=== PATIENT | female | born 2005 | race Caucasian/White ===

== ENCOUNTER 2025-01-23 11:48 | Emergency (ER) | payer OTHER, SELFPAY ==
[2025-01-23 11:49] VITALS: BP 148/92; PULSE 122; RESP 16; TEMP 36.7; O2SAT 100; BMI 34.2
--- NOTE | 2025-01-23 11:56 | ED.RN ---
EXPLAINED BWC TO PT. PT DECLINED AND STATES THAT SHE WILL RUN IT THROUGH HER INSURANCE.
--- NOTE | 2025-01-23 11:59 | ED.RN ---
PT ASKED QUESTION LATER IN TRIAGE REGARDING BWC. GIVEN FROI, EXPLAINED AGAIN AND PT HAD EMPLOYER ON PHONE NO DRUG SCREEN REQUIRED. PT AGREEABLE AND WANTS TO STARTED PROCESS AND EE WHAT TRANSPIRES FROM THERE.
--- NOTE | 2025-01-23 12:17 | EDS_ITS ---
HPI <TAHIRA Jimenez - Last Filed: 01/23/25 12:26> History of Present Illness Chief Complaint: Head Injury Narrative Narrative: Patient is a 19-year-old female with no significant medical history who presents to the emergency department after a head injury while at work that occurred 2 days ago. 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 She was bent down, stood up and hit a metal pole. She denies any LOC. She states she did have a bump that day, since then, she has been feeling nauseous, more tired. Patient states that bright lights do bother her, and she is here for evaluation. Denies any actual vomiting, per the mother denies any altered mental status. PFSH <TAHIRA Jimenez - Last Filed: 01/23/25 12:26> PFSH Medical History no medical history Home Medications ?Medication ?Instructions ?Recorded ?Last Taken ?Type cholecalciferol (vitamin D3) 62.5 mcg PO 11/29/22 Unkn own History mcg (2,500 unit) capsule multivitamin 1 tab PO DAILY 04/11/23 Unkn own History sertraline 50 mg tablet (Zoloft) 50 mg PO DAILY #30 ta bs 04/11/23 Unknown Rx ondansetron 4 mg disintegrating 4 mg PO Q8H PRN PRN Na usea #10 tabs 01/23/25 Unknown Rx tablet Allergy/AdvReac Type Severity Reaction Status Date / Time No Known Allergies Allergy Verified 01/23/25 11:49 Family History Other Diabetes Surgical History no surgical history Social History Smoking Status: Never smoker alcohol intake: current alcohol intake frequency: holidays/special occasions only substance use type: does not use what type of physical activity do you participate in: other frequency: 3-4 times per week ROS <TAHIRA Jimenez - Last Filed: 01/23/25 12:26> ROS ED ROS Narrative Constitutional: Negative for fever, chills, weight loss, weakness Eyes: Negative for vision loss, vision change, double vision ENT: Negative for any sore throat, ear pain, congestion Cardiovascular: Negative for any chest pain, tightness, palpitations Respiratory: Negative for any cough, sputum production, hemoptysis, dyspnea, dyspnea on exertion, orthopnea Gastrointestinal: Negative for any abdominal pain, vomiting, diarrhea, constipation, blood in stool, blood in vomit. Positive for nausea : Negative for any urinary frequency, dysuria, retention, blood in urine Muscle skeletal: Negative for any neck pain, back pain Neurological: Negative for any syncope, dizziness. Positive for headache, light sensitivity Skin: Negative for any rashes, itching, abrasions, lacerations Psychiatric: Negative for any depression, anxiety, stress, suicidal ideation, homicidal ideation Hematologic: Negative for any excessive bruising, easy bleeding EXAM <TAHIRA Jimenez - Last Filed: 01/23/25 12:26> Physical Exam Narrative Exam Narrative: Vital signs reviewed. HEET: Head normocephalic atraumatic, TMs clear bilaterally. Posterior pharynx is clear, moist mucous membranes. Nares clear bilaterally. Pupils are equal round reactive to light. Slight photophobia, no nystagmus. I did not feel any hematoma Neck: Supple with no lymphadenopathy or tenderness. No signs of meningismus. Cardiac: Regular rate and rhythm no murmurs gallops or rubs, equal peripheral pulses bilaterally. Respiratory: Lungs clear to auscultation bilaterally. No chest tenderness. Abdomen: Soft, nontender, nondistended. No abdominal bruit or pulsatile masses. No hepatosplenomegaly Extremities: No peripheral edema, no signs of gross trauma or deformity. Active full range of motion of all extremities. Neuro: Cranial nerves II through XII intact, no focal neurological deficits. Neuroexam unremarkable Skin: Clean dry and intact with no rash, purpura, petechiae, vesicles or pustules. Backs/flank: No CVA tenderness, no midline spinal tenderness, no deformity. Psych: Normal mood and affect. No SI, HI or acute psychosis. Const Vital Signs: 01/23/25 11:49 01/23/25 12:31 Temperature 98.0 F Temperature Source Oral Pulse Rate 122 H Respiratory Rate 16 Respiratory Effort Normal Respiratory Depth Normal Respiratory Pattern Normal Blood Pressure 148/92 H Blood Pressure Mean 110 Pulse Ox 100 Oxygen Delivery Method Room Air Room Air Positive well nourished and well developed General Appearance ED: well developed <Dr. Jean Duke DO - Last Filed: 01/23/25 12:42> Physical Exam Const Vital Signs: 01/23/25 11:49 01/23/25 12:31 Temperature 98.0 F Temperature Source Oral Pulse Rate 122 H Respiratory Rate 16 Respiratory Effort Normal Respiratory Depth Normal Respiratory Pattern Normal Blood Pressure 148/92 H Blood Pressure Mean 110 Pulse Ox 100 Oxygen Delivery Method Room Air Room Air [facility] <TAHIRA Jimenez - Last Filed: 01/23/25 12:26> [facility] Treatment and Re-Evaluation :: Differential diagnosis includes however is not limited to: Closed head injury, concussion, skull fracture, intracranial bleeding Patient appears generally well, vital signs are stable, patient is nontoxic- appearing. Presenting to the emergency department for complaints of a head injury that occurred 2 days ago, patient is here with symptoms of concussion. On my physical examination, there is no neurodeficits. Patient according [place] CT head rules does not require any advanced imaging. Patient has no hematoma, no depressed skull fracture. Patient was given Zofran, Tylenol here. Patient will have all paperwork signed, secondary to this being Worker's Comp. Happy with the plan of care, chemistries return precaution, stable for discharge. <Dr. Jean Duke DO - Last Filed: 01/23/25 12:42> [facility] Narrative Medical decision making narrative: Differential diagnosis but not limited to includes concussion hematoma skull fracture intracranial hemorrhage I have personally performed a face to face assessment of the patient and have reviewed the CHANCE Note. I performed a substantive portion of the visit including all aspects of the following. My rose findings include: History is patient struck her head on . Was able to work yesterday. Notes continued headache and nausea and generalized fatigue. She had no loss of consciousness. No fall. She is not on any blood thinners. No reported seizure. Exam is afebrile vital signs are stable. Well-appearing female sitting comfortably in the bed. Neurologically is intact without deficits. Medical Decison Makingbased on the history and the physical do believe this patient has a concussion. Would recommend rest symptomatic care. Follow-up if not improving return if worsening History & Record Review Discussion w/independent historian: Patient and Family Discharge Plan Triage Chief Complaint: Head Injury ED Midlevel Provider: Wilfredo Ozuna ED Provider: Jean Duke Dx/Rx/DC Orders Clinical Impression: Head injury, Concussion syndrome Instructions: Coping with Concussion, After a Concussion Prescriptions: New ondansetron 4 mg tablet,disintegrating 4 mg PO Q8H PRN PRN (Reason: Nausea) Qty: 10 0RF No Action cholecalciferol (vitamin D3) 62.5 mcg (2,500 unit) capsule PO multivitamin Tablet 1 tab PO DAILY sertraline [Zoloft] 50 mg tablet 50 mg PO DAILY Qty: 30 3RF Primary Care Provider: Care Physician,No Primary Referrals: Care Physician,No Primary [Primary Care Provider] - Activity Restrictions/Additional Instructions: Please follow-up outpatient. Print Language: Czech Disposition Disposition: Home, Self Care
[2025-01-23] MEDS: Acetaminophen 500 MG Tablet 1000 MG PO (12:30)
[2025-01-23] MEDS: Ondansetron ODT 4 MG Tablet PO (12:30)
== END 2025-01-23 12:48 | disposition home or self-care (01) ==
LOC: ED 12:44
PROVIDERS: Emergency Provider Emergency Medicine; Visit Provider Emergency Medicine
DX: S09.90XA Unspecified injury of head, initial encounter (principal); F07.81 Postconcussional syndrome; W22.09XA Striking against other stationary object, initial encounter; Y99.0 Civilian activity done for income or pay; Y92.89 Other specified places as the place of occurrence of the external cause
CPT/HCPCS: 99282

== ENCOUNTER 2025-02-16 17:16 | Emergency (ER) | payer OTHER, SELFPAY ==
[2025-02-16 17:17] VITALS: BP 159/96; PULSE 129; RESP 15; TEMP 36.5; O2SAT 100; BMI 34.5
--- NOTE | 2025-02-16 18:28 | CT_ITS ---
PROCEDURE: BRAIN/HEAD WITHOUT CONTRAST 02/16/2025 REASON FOR EXAM: Pain, trauma TECHNIQUE: Head CT without intravenous contrast. Coronal and Sagittal reconstruction series were provided. One or more dose reduction techniques were used (e.g., Automated exposure control, adjustment of the mA and/or kV according to patient size, use of iterative reconstruction technique. COMPARISON: None FINDINGS: No acute intracranial hemorrhage, midline shift or mass effect. No definite CT evidence of acute territorial cortical infarction. No hydrocephalus. Cerebral volume is age-appropriate. Calvarium is intact. Paranasal sinuses and mastoid air cells are clear. CT/Brain/Head without Contrast IMPRESSION: No acute intracranial abnormality. Reading Location: [facility]
--- NOTE | 2025-02-16 18:30 | EX.ED.DYSGE1 ---
HPI History of Present Illness Chief Complaint: Headache Informant: patient and parent Onset/Context/Timing Onset: Weeks Current Severity: Mild Maximum Severity: Moderate Narrative Narrative: 19-year-old female no CeeNU past medical history. Reportedly had a head injury about 4 weeks ago. Currently a relatively minor injury. She was on some type of lip stood up hit her head on a steel beam. No LOC. She is on no blood thinners. Says she has had headaches since that time. She is also states she just has not been feeling well she has been excessively tired. Has had nausea without vomiting had some loose stools that resolved. No dysuria. She has never been . Last menstrual period was about 2 weeks ago. She denies any current vaginal bleeding. No chest pain or abdominal pain. No shortness of breath. Prior similar symptoms: No Recent Illness/Hospitalization: No PFSH PFSH Medical History no medical history no medical history Home Medications ?Medication ?Instructions ?Recorded ?Last Taken ?Type cholecalciferol (vitamin D3) 62.5 mcg PO 11/29/22 Unknown History mcg (2,500 unit) capsule multivitamin 1 tab PO DAILY 04/11/23 Unknown History sertraline 50 mg tablet (Zoloft) 50 mg PO DAILY #30 tabs 04/11/23 Unknown Rx ondansetron 4 mg disintegrating 4 mg PO Q8H PRN PRN Nausea #10 tabs 01/23/25 Unknown Rx tablet Allergy/AdvReac Type Severity Reaction Status Date / Time No Known Allergies Allergy Verified 02/16/25 17:17 Family History Other Diabetes Surgical History no surgical history no surgical history Social History Smoking Status: Never smoker alcohol intake: current alcohol intake frequency: holidays/special occasions only substance use type: does not use what type of physical activity do you participate in: other frequency: 3-4 times per week ROS ROS ED ROS Narrative Headaches post head injury. General illness. Constitutional Constitutional ED: Denies chills or fever(s) Eyes Eyes: Denies blurry vision ENT ENT ED: Denies ear pain Cardiovascular Cardiovascular: Reports palpitations; Denies chest pain Respiratory/Chest Respiratory/Chest: Denies cough, dyspnea or dyspnea on exertion Gastrointestinal Gastrointestinal: Denies abdominal pain Genitourinary Genitourinary ED: Denies dysuria or hematuria Musculoskeletal Musculoskeletal: Denies arthralgias or back pain Integumentary Denies abscess Neurologic Neurologic: Reports headache(s) Psychiatric Psychiatric: Reports anxiety Endocrine Endocrinology: Denies cold intolerance Hematologic/Lymphatic Hematologic/Lymphatic: Reports none Allergic/Immunologic Allergic/Immunologic ED: Denies mouth swelling, tongue swelling or urticaria EXAM Physical Exam Narrative Exam Narrative: Well-appearing 19-year-old female. Vital signs are stable except her pulse is in the 120s. She does not look septic toxic no acute distress. Mom at bedside. H EENT exam pupils round react to light. Motions are intact. Mytrex membranes. Scalp nontender no hematoma. Neck nontender. No lymphadenopathy. No thyromegaly. Lungs clear to auscultation bilaterally. Heart tachycardic no murmur rate about 125. Chest and ribs are nontender. Abdomen soft nontender. No peritoneal signs. Moving all 4 extremities. 5-5 diagnostic assistant strength. Dorsi plantarflexion intact. Calves are nontender without edema or cords. Neurologically she is awake and alert no focal motor deficits. Answering questions following commands. Back nontender. Skin unremarkable no rashes. No cellulitis. She does seem anxious. Const Vital Signs: 02/16/25 17:17 02/16/25 19:36 02/16/25 21:00 Temperature 97.7 F L Temperature Source Temporal Pulse Rate 129 H 110 H 105 H Respiratory Rate 15 14 18 Blood Pressure 159/96 H 118/76 113/77 Blood Pressure Mean 117 90 89 Pulse Ox 100 100 99 Oxygen Delivery Method Room Air Room Air Room Air Positive well nourished and well developed; Negative for cachectic, contractures or unkempt General Appearance ED: well developed and NAD; Negative for unkempt, cachectic, contractures, cyanotic, diaphoretic or pallor Nutritional Appearance: Negative for cachectic HEENT Reports moist mucous membranes Negative for trauma or tenderness Eyes PERRL and EOMs intact bilaterally General Eye ED: Negative for pale conjunctiva or scleral icterus Neck no lymphadenopathy, supple and no JVD Chest Wall inspection of chest normal and palpation of chest normal Resp normal respiratory effort and clear to auscultation bilaterally Cardio regular rhythm, S1 normal heart sound, S2 normal heart sound and no murmurs; Negative for regular rate Rate: tachycardic GI normal to inspection, nondistended, normoactive bowel sounds, non-tender, non-distended and no masses Auscultation: normoactive bowel sounds Palpation: soft; Negative for tender, guarding or rebound tenderness present Back/Spine no CVA tenderness General Back: Negative for CVA tenderness Cervical Spine: Negative for cervical spine tenderness Thoracic Spine / Upper Back: Negative for thoracic spinal tenderness or paraspinal muscle tenderness Lumbar Spine / Lower Back: Negative for lumbar spinal tenderness Extremity normal to inspection General Extremety ED: Negative for edema or tenderness General Extremity: Negative for edema Neuro oriented x3 and CN's II-XII intact bilaterally Sensorium / Orientation: alert; Negative for orientation impaired or stuporous Motor Exam: strength 5/5 throughout Psych mental status grossly normal Appearance: Negative for unkempt Attitude: No agitated Mood & Affect: anxious; Negative for depressed or tearful Skin no rashes or lesions noted, no wounds and skin turgor normal General Skin Exam: elasticity normal; Negative for jaundice or pallor Lesions: No lesion noted Rashes: No rashes noted Trauma: Negative for abrasion Wounds: Negative for wounds noted MDM MDM MDM Narrative Medical decision making narrative: 19-year-old female complaint is not feeling well. With the tachycardia. Recent head injury. Neurologic exam is normal. She has had headaches for 4 weeks. I will obtain a CAT scan of her head due to trauma even though did not sound like a significant injury. Screening labs with thyroid and test. EKG and chest x-ray due to tachycardia. Repeat exam at Repeat exam at 10:22 PM patient doing well. No complaints. Vital signs are stable. She clinically looks well. She is afebrile. Exam remains benign. Her heart rate initially was 129 and is currently around 100. I went over all test results with her and her mom. They are comfortable with her being discharged home. History & Record Review Discussion w/independent historian: Patient and Family Additional record(s) reviewed:: Prior inpatient record, Prior outpatient record, Prior ED visit and Prior labs Lab Data Attestation: I reviewed the patient's lab results. Lab results narrative: CBC normal. White count 7. H&H 14 and 38. Platelets 226. Electrolytes show gap 12. Normal BUN of 8 creatinine 0.6. Glucose 109. Thyroid 1.9 and normal. Serum test negative. Labs: Laboratory Results - last 24 hr 02/16/25 18:12 WBC 7.2 RBC 4.42 Hgb 14.0 Hct 38.6 MCV 87.3 MCH 31.7 MCHC 36.3 H RDW Std Deviation 40.1 RDW Coeff of Dominique 12.7 Plt Count 226 MPV 10.1 Immature Gran % (Auto) 0.300 Neut % (Auto) 61.7 Lymph % (Auto) 30.1 [place] % (Auto) 6.8 Eos % (Auto) 0.8 Baso % (Auto) 0.3 Absolute Neuts (auto) 4.5 Absolute Lymphs (auto) 2.18 Nucleated RBC % 0 Sodium 139 Potassium 3.4 Chloride 103 Carbon Dioxide 23.9 Anion Gap 12 BUN 8 Creatinine 0.61 L Estim Creat Clear Calc 142.52 Est GFR (MDRD) Non-Af 131 BUN/Creatinine Ratio 13.0 Glucose 109 H Calcium 9.6 TSH 1.930 Serum , Qual NEGATIVE Radiography Chest X-Ray - ED: 2 View and Read by ED Physician Diagnostic Testing: Clinical Impression(s) from Imaging Studies Brain CT 02/16/25 18:28 IMPRESSION: No acute intracranial abnormality. Reading Location: [facility] Chest X-Ray 02/16/25 18:39 IMPRESSION: No acute airspace abnormality. Reading Location: [facility] Chest x-ray, 2 views, AP and lateral, interpreted by myself and radiologist shows no acute abnormality. Normal cardiac silhouette. Normal lung [place]. Rhythm Strip Rhythm Strip: Sinus Rhythm Rate: 91 Ectopy: None EKG Initial EKG: Attestation: I personally reviewed and interpreted this EKG as follows: Interpretation: Sinus Rhythm and No Acute Injury Pattern Comments: Normal sinus rhythm rate of 91 no acute signs of OR or ischemia. Discharge Plan Triage Chief Complaint: Headache ED Provider: Sergey Pablo Dx/Rx/DC Orders Clinical Impression: Head injury, Post-concussion syndrome, General weakness Instructions: Coping with Concussion, ED Weakness Uncertain Cause Prescriptions: No Action cholecalciferol (vitamin D3) 62.5 mcg (2,500 unit) capsule PO multivitamin Tablet 1 tab PO DAILY sertraline [Zoloft] 50 mg tablet 50 mg PO DAILY Qty: 30 3RF ondansetron 4 mg tablet,disintegrating 4 mg PO Q8H PRN PRN (Reason: Nausea) Qty: 10 0RF Primary Care Provider: Care Physician,No Primary Referrals: Grant Pierre MD [Med Staff - General Manager [facility]] - As Needed Care Physician,No Primary [Primary Care Provider] - Activity Restrictions/Additional Instructions: Plenty of fluids and rest. Motrin and Tylenol for any headaches. Follow-up with your primary care physician or the physician I referred you to for further evaluation. Your CAT scan, chest x-ray, EKG and all your labs tonight were normal. Print Language: Belarusian Disposition Disposition: Home, Self Care
[2025-02-16 18:35] LABS: Absolute Lymphocyte Count 2.18 X10^3/uL (0.83-4.51); Absolute Neutrophil Count 4.5 X10^3/uL (2.0-7.7); Basophil# 0.02 X10^3/uL; Basophil% 0.3 % (0-1); Eosinophil# 0.06 X10^3/uL; Eosinophils% 0.8 % (0-5); Hematocrit 38.6 % (37-47); Lymphocyte # 2.18 X10^3/ul (0.83-4.51); Lymphocyte % 30.1 % (19-41); Mean Corp Hgb Conc 36.3 g/dL (32-36); Mean Corpuscular Hgb 31.7 pg (27.0-32.0); Mean Corpuscular Volume 87.3 fL (81-99); Mean Platelet Vol. 10.1 fl (6.2-12.0); Monocyte# 0.49 X10^3/uL; Monocyte% 6.8 % (0-10); NRBC Flagged by Analyzer 0 % (0-5); Neutrophil # 4.47 X10^3/uL (2.7-7.7); Neutrophil % 61.7 % (47-70); Platelet Count 226 K/mm3 (150-450); RBC Distribution Width CV 12.7 % (11.6-14.6); RBC Distribution Width SD 40.1 fl (35.1-43.9); Red Blood Count 4.42 M/mm3 (4.2-5.4); White Blood Count 7.2 K/mm3 (4.4-11.0)
--- NOTE | 2025-02-16 18:39 | RAD_ITS ---
PROCEDURE: CHEST PA AND LATERAL 02/16/2025 REASON FOR EXAM: TACHYCARDIA TECHNIQUE: Frontal and lateral views of the chest. COMPARISON: None FINDINGS: Cardiomediastinal silhouette is within normal limits. Lungs are clear. No sizable pneumothorax. RAD/Chest PA and Lateral IMPRESSION: No acute airspace abnormality. Reading Location: [facility]
[2025-02-16 18:52] LABS: Internal QC Validated? YES +Cl - CLEAR BKGD; Pregnancy, Serum, hCG Quali. NEGATIVE Negative; Record Kit Lot#, Serum Preg. 929381
[2025-02-16 19:18] LABS: Anion Gap 12 (5-15); BUN 8 mg/dL (4-19); Calcium,Total 9.6 mg/dL (7.6-11.0); Carbon Dioxide 23.9 mmol/L (21.0-32.0); Chloride 103 mmol/L (98-108); Creatinine, Serum 0.61 mg/dL (0.70-1.20); EST Glomerular Filtration Rate 131 (>60); Estimated Creatinine Clearance 142.52 ml/min (50-250); Glucose 109 mg/dL (70-99); Potassium 3.4 mmol/L (3.3-5.1); Sodium Level 139 mmol/L (133-145)
[2025-02-16 19:36] VITALS: BP 118/76; PULSE 110; RESP 14; O2SAT 100
[2025-02-16 21:00] VITALS: BP 113/77; PULSE 105; RESP 18; O2SAT 99
[2025-02-16 22:33] VITALS: BP 113/77; PULSE 103; RESP 16; TEMP 36.5; O2SAT 99
== END 2025-02-16 22:38 | disposition home or self-care (01) ==
PROVIDERS: Emergency Provider Emergency Medicine; Visit Provider Emergency Medicine
DX: R51.9 Headache, unspecified (principal); S09.90XA Unspecified injury of head, initial encounter; R53.1 Weakness; F07.81 Postconcussional syndrome; W22.09XA Striking against other stationary object, initial encounter
CPT/HCPCS: 70450; 71046; 80048; 84443; 84703; 85025; 93005; 99283; A4216

== ENCOUNTER 2025-09-10 11:41 | Emergency (ER) | payer OTHER, SELFPAY ==
[2025-09-10 11:41] VITALS: BP 131/91; PULSE 93; RESP 16; TEMP 36.6; O2SAT 99; BMI 31.1
[2025-09-10 12:02] VITALS: TEMP 36.9
--- NOTE | 2025-09-10 12:48 | CT_ITS ---
PROCEDURE: BRAIN/HEAD WITHOUT CONTRAST 09/10/2025 REASON FOR EXAM: HEADACHE TECHNIQUE: Procedure Code: CTBR Modality: CT Procedure: BRAIN/HEAD WITHOUT CONTRAST Coronal and Sagittal reconstruction series were provided. One or more dose reduction techniques were used (e.g., Automated exposure control, adjustment of the mA and/or kV according to patient size, use of iterative reconstruction technique. RADIATION DOSE SUMMARY: CTDlvol: 47 mGy DLP: 872 mGycm COMPARISON: February 16, 2025 FINDINGS: Brain: There is no evidence of hemorrhage, acute ischemia or mass. No extra- axial fluid collection, midline shift or mass effect. CSF Spaces: Normal Sinuses/Mastoids: Clear Bones: No fracture CT/Brain/Head without Contrast IMPRESSION: No acute intracranial abnormality Reading Location: [id number]
[2025-09-10] MEDS: 0.9% Normal Saline (1000mL) 1,000 ML 1000 ML IV (13:00)
--- NOTE | 2025-09-10 13:00 | EDS_ITS ---
HPI History of Present Illness Chief Complaint: Fever Narrative Narrative: Chief complaint and HPI: 20-year-old vaccinated female with no significant past medical history other than depression presents for evaluation of multiple complaints. Patient states she intermittently gets headaches. States several days ago she developed intermittent fevers that have since resolved, congestion, sore throat, and headache. She states her headache waxes and wanes. Associated symptoms is intermittent light sensitivity. States she had some bodyaches with neck stiffness. This is improved. She states several days ago she was wearing high platform boots when she was going down the steps and hurt her left ankle. States that the pain is improving however still present. She denies any chest pain, shortness of breath, cough, nausea, vomiting, abdominal pain, diarrhea. Review of systems: See HPI Medications: As listed on the chart Allergies: As listed on the chart PFSH: Per chart Vital signs: As listed on the chart. Reviewed. Physical exam: Gen: A&O x3, NAD Head: Normocephalic, atraumatic Eyes: No sclera icterus, conjunctiva clear, PERRL, EOMI, No periorbital swelling or ecchymosis, no proptosis, no pain with extra ocular movements, no sclera chemosis or injection, sharp optic disc margins bilaterally, normal vessels ENT: TMs clear BL, moist mucous membranes, posterior oropharynx mildly erythematous, uvula midline, tonsils not enlarged, no tonsillar exudates, no sinus tenderness Neck: Trachea midline, No JVD, Full ROM, No meningismus CV: RRR, no murmurs, no peripheral edema Resp: Lungs CTA BL, no w/r/c GI: Abd soft, non-distended, non-tender, no r/r/g Musc: Full ROM, no deformity, strength +5/5 in all extremities, left ankle mildly tender to palpation over the lateral malleolus otherwise no significant swelling or external signs of trauma, DP/PT pulses +2 bilaterally, good capillary refill, sensation intact Skin: Warm, dry, no rash Neuro: Alert, oriented, grossly intact, sensation intact Psych: Cooperative, appropriate mood and affect [facility] Home Medications Medication Instructions Recorded Last Taken Type cholecalciferol (vitamin D3) 62.5 mcg PO 11/29/22 Unkn own History mcg (2,500 unit) capsule multivitamin 1 tab PO DAILY 04/11/23 Unkn own History sertraline 50 mg tablet (Zoloft) 50 mg PO DAILY #30 ta bs 04/11/23 Unknown Rx ondansetron 4 mg disintegrating 4 mg PO Q8H PRN PRN Na usea #10 tabs 01/23/25 Unknown Rx tablet Allergy/AdvReac Type Severity Reaction Status Date / Time No Known Allergies Allergy Verified 09/10/25 11:43 Family History Other Diabetes Social History Smoking Status: Never smoker alcohol intake: current alcohol intake frequency: holidays/special occasions only substance use type: does not use what type of physical activity do you participate in: other frequency: 3-4 times per week EXAM Physical Exam Const Vital Signs: 09/10/25 11:41 09/10/25 12:02 09/10/25 12:02 Temperature 98 F 98.4 F Temperature Source Oral Temporal Pulse Rate 93 Respiratory Rate 16 Respiratory Effort Normal Non-Labored Respiratory Pattern Normal Blood Pressure 131/91 H Blood Pressure Mean 104 Pulse Ox 99 Oxygen Delivery Method Room Air 09/10/25 13:37 09/10/25 14:50 Temperature 98 F Temperature Source Pulse Rate 62 60 Respiratory Rate 14 14 Respiratory Effort Respiratory Pattern Blood Pressure 118/80 123/74 H Blood Pressure Mean 92 90 Pulse Ox 98 100 Oxygen Delivery Method Room Air MDM MDM MDM Narrative Medical decision making narrative: 20-year-old vaccinated female with no significant past medical history other than depression presents for evaluation of multiple complaints. Patient states she intermittently gets headaches. States several days ago she developed intermittent fevers that have since resolved, congestion, sore throat, and headache. She states her headache waxes and wanes. Associated symptoms is intermittent light sensitivity. States she had some bodyaches with neck stiffness. This is improved. She states several days ago she was wearing high platform boots when she was going down the steps and hurt her left ankle. States that the pain is improving however still present. On presentation, patient no acute distress. Nontoxic-appearing. Afebrile. See physical exam findings. Differential diagnosis includes but is not limited to viral syndrome, sinus headache, electrolyte abnormality, suspect less likely intracranial abnormality. Patient has no meningeal signs however meningitis is on the differential. Ankle pain consists of sprain versus fracture. Will obtain basic labs with x-ray of the ankle and CT brain. COVID, flu, RSV testing was offered but patient declined. NS bolus, morphine, Reglan, Benadryl ordered for symptoms. CBC without leukocytosis or anemia. Patient has mild thrombocytopenia at 122. BMP unremarkable. X-ray of the ankle was personally viewed interpreted by me, ED physician. No fracture or dislocation. Radiology in agreement. CT of the head negative for any acute intracranial abnormality. On reevaluation, patient states her headache has resolved. Her sore throat has improved. She is ambulated to the bathroom without difficulty. She has remained afebrile. Vitals are stable. Nontoxic-appearing. I have a low suspicion for meningitis as patient has no meningeal signs on physical exam. She is vaccinated. No leukocytosis on labs. Symptoms have improved with medica tion. I did explain to the patient that with out lumbar puncture I cannot fully rule out meningitis. Patient confirmed understanding. Patient states that she would like to forego lumbar puncture at this time as symptoms have improved/resolved. Patient was educated that if symptoms return or worsen she is to be seen in the emergency department. Follow-up with primary care physician. She confirmed understand the plan. Patient will discharge home. Impression: 1. Headache 2. Viral syndrome 3. Left ankle sprain 4. Thrombocytopenia Lab Data Labs: Laboratory Results - last 24 hr 09/10/25 13:01 WBC 7.4 RBC 4.32 Hgb 13.6 Hct 38.9 MCV 90.0 MCH 31.5 MCHC 35.0 RDW Std Deviation 46.7 H RDW Coeff of Dominique 14.1 Plt Count 122 L MPV 10.3 Immature Gran % (Auto) 0.400 Neut % (Auto) 18.6 L Lymph % (Auto) 71.9 H Fallon % (Auto) 5.4 Eos % (Auto) 1.8 Baso % (Auto) 1.9 H Absolute Neuts (auto) 1.4 L Absolute Lymphs (auto) 5.33 H Nucleated RBC % 0 Reactive Lymphocytes 3+ Sodium 138 Potassium 3.7 Chloride 104 Carbon Dioxide 25.1 Anion Gap 9 BUN 7 Creatinine 0.46 L Estim Creat Clear Calc 177.52 Est GFR (MDRD) Non-Af 138 BUN/Creatinine Ratio 14.2 Glucose 98 Calcium 9.3 Radiography Diagnostic Testing: Clinical Impression(s) from Imaging Studies Brain CT 09/10/25 12:48 IMPRESSION: No acute intracranial abnormality Reading Location: [facility] Ankle X-Ray 09/10/25 13:15 IMPRESSION: No acute abnormality Reading Location: [facility] Discharge Plan Triage Chief Complaint: Fever ED Provider: Norberto Ricardo Dx/Rx/DC Orders Clinical Impression: Headache, Viral syndrome, Left ankle sprain Instructions: ED Viral Syndrome (Adult), ED Ankle Sprain (Adult) Prescriptions: No Action cholecalciferol (vitamin D3) 62.5 mcg (2,500 unit) capsule PO multivitamin Tablet 1 tab PO DAILY sertraline [Zoloft] 50 mg tablet 50 mg PO DAILY Qty: 30 3RF ondansetron 4 mg tablet,disintegrating 4 mg PO Q8H PRN PRN (Reason: Nausea) Qty: 10 0RF Primary Care Provider: Audrey John Referrals: Audrey John, EDUCATION ADMINISTRATIVE ASSISTANT[facility] [Primary Care Provider, Family Practice] - 3-5 Days Activity Restrictions/Additional Instructions: Tylenol and Motrin as needed for headache and pain in the ankle. Return back to ED if symptoms change or worsen. Follow-up with your primary care physician. Print Language: Mongolian Disposition Disposition: Home, Self Care Discharge Date/Time: 09/10/25 14:52
[2025-09-10] MEDS: DiphenhydrAMINE 50 MG/ML Syringe 25 MG IV (13:01)
[2025-09-10 13:10] LABS: Hematocrit 38.9 % (37-47); Hemoglobin 13.6 g/dL (12.0-15.0); Immature Granulocytes Count 0.030 X10^3/uL (0.0-0.0); Mean Corp Hgb Conc 35.0 g/dL (32-36); Mean Corpuscular Volume 90.0 fL (81-99); Mean Platelet Vol. 10.3 fl (6.2-12.0); NRBC Flagged by Analyzer 0 % (0-5); POSITIVE DIFFERENTIAL YES; POSITIVE MORPHOLOGY YES; Platelet Count 122 K/mm3 (150-450); RBC Distribution Width CV 14.1 % (11.6-14.6); RBC Distribution Width SD 46.7 fl (35.1-43.9); Red Blood Count 4.32 M/mm3 (4.2-5.4); White Blood Count 7.4 K/mm3 (4.4-11.0)
[2025-09-10 13:11] LABS: Differential Indicated SCAN CRITERIA MET
--- NOTE | 2025-09-10 13:15 | RAD_ITS ---
PROCEDURE: ANKLE MIN 3 VIEWS 09/10/2025 REASON FOR EXAM: PAIN TECHNIQUE: Procedure Code: RADANK Modality: DX Procedure: ANKLE MIN 3 VIEWS Laterality: Left COMPARISON: None FINDINGS: Bones: No fracture Joints: Normal alignment. Mortise appears intact. No effusion. Soft tissues: Soft tissues are unremarkable. Other: No foreign body RAD/Ankle min 3 Views IMPRESSION: No acute abnormality Reading Location: [id number]
[2025-09-10 13:37] VITALS: BP 118/80; PULSE 62; RESP 14; O2SAT 98
[2025-09-10 13:39] LABS: Reactive Lymphocyte 3+
[2025-09-10 13:42] LABS: Anion Gap 9 (5-15); BUN 7 mg/dL (4-19); BUN/Creat Ratio 14.2 RATIO (10-20); Calcium,Total 9.3 mg/dL (7.6-11.0); Carbon Dioxide 25.1 mmol/L (21.0-32.0); Chloride 104 mmol/L (98-108); Estimated Creatinine Clearance 177.52 ml/min (50-250); Glucose 98 mg/dL (70-99); Potassium 3.7 mmol/L (3.3-5.1)
[2025-09-10 14:50] VITALS: BP 123/74; PULSE 60; RESP 14; TEMP 36.6; O2SAT 100
== END 2025-09-10 14:52 | disposition home or self-care (01) ==
PROVIDERS: Emergency Provider Surgery; PCP Nurse Practitioner Family; Visit Provider Surgery
DX: R50.9 Fever, unspecified (principal); S93.402A Sprain of unspecified ligament of left ankle, initial encounter; R51.9 Headache, unspecified; D69.6 Thrombocytopenia, unspecified; B34.9 Viral infection, unspecified; X58.XXXA Exposure to other specified factors, initial encounter; F32.A Depression, unspecified; Z79.899 Other long term (current) drug therapy
CPT/HCPCS: 70450; 73610; 80048; 85025; 96361; 96374; 96375; 99285; A4216